=== PATIENT | male | born 1995 | race Caucasian/White ===

== ENCOUNTER → 2018-10-24 | Outpatient (CLI) | payer BC, OTHER, SELFPAY ==
[2018-10-24 16:39] VITALS: BMI 27.3
--- NOTE | 2018-10-24 17:02 | RAD_ITS ---
STUDY: X-RAY - LEFT ANKLE REASON FOR EXAM: Male, 23 years old. Injury to left leg one week ago with medial tibial pain. TECHNIQUE: 3 view(s) of the ankle. COMPARISON: Left knee images dated March 26, 2016. FINDINGS: Normal visualized distal tibia and fibula. Normal medial and lateral malleoli. Normal tibiotalar articulation and ankle mortise. Normal visualized talus and calcaneus. The visualized subtalar, talonavicular, calcaneocuboid and tarsal articulations are normal. The soft tissue structures are unremarkable. RAD/Ankle min 3 Views IMPRESSION: Normal x-ray examination of the ankle. Electronically Signed: Bharat Porter MD at 17:37 EDT , Service support ,
--- NOTE | 2018-10-24 17:02 | RAD_ITS ---
STUDY: X-RAY - LEFT TIBIA AND FIBULA REASON FOR EXAM: Male, 23 years old. Injury one week ago. Medial pain. TECHNIQUE: 2 view(s) of the tibia and fibula were obtained. COMPARISON: None. FINDINGS: Normal visualized tibia. Normal visualized fibula. The soft tissue structures are unremarkable. RAD/Tibia & Fibula 2 Views IMPRESSION: Normal x-ray examination of the tibia and fibula. Electronically Signed: Bharat Porter MD at 17:38 EDT , Service support ,
--- NOTE | 2018-10-24 17:02 | RAD_ITS ---
STUDY: X-RAY - LEFT KNEE REASON FOR EXAM: Male, 23 years old. Injury one week ago. Pain. TECHNIQUE: 4 view(s) of the knee. COMPARISON: March 26, 2016 FINDINGS: Normal visualized distal femur. Normal visualized proximal tibia and fibula. Normal proximal tibiofibular articulation. Normal medial femorotibial compartment. Normal lateral femorotibial compartment. Normal patellofemoral articulation. The soft tissue structures are unremarkable. RAD/Knee 4 or More Views IMPRESSION: No interval change and no acute finding. Electronically Signed: Bharat Porter MD at 17:38 EDT , Service support ,
== END | disposition home or self-care (01) ==
LOC: MTRAD 17:00
PROVIDERS: Family Provider Family Medicine; PCP Family Medicine; Referring Provider Physician Assistant; Visit Provider Physician Assistant
DX: S89.92XA Unspecified injury of left lower leg, initial encounter (principal); S99.912A Unspecified injury of left ankle, initial encounter
CPT/HCPCS: 73564; 73590; 73610

== ENCOUNTER 2018-10-30 09:45 | Emergency (ER) | payer BC, OTHER, SELFPAY ==
[2018-10-24 16:39] VITALS: BMI 27.3
[2018-10-30 09:46] VITALS: BP 140/100; PULSE 78; RESP 17; TEMP 36.8; O2SAT 99; BMI 27.0
--- NOTE | 2018-10-30 10:17 | ED.VISSUMM ---
- ER Visit Summary Date of Service: 10/30/18 Chief Complaint: Leg injury History of Present Illness: The patient is a 23 M who states that on October 17 he sustained a crush injury to the mid to the proximal anterior right leg and 300 pounds of metal came onto the leg. States he hyperextended his knee. He had knee pain has had prior meniscal repair. He states that he is to follow-up with orthopedics on Sunday. He tells me that he had a large amount of swelling and a abrasion to the anterior leg. Since then he has had tingling intermittently of the foot. He states it seems to get worse with his boots. Today he was on the way to [employer] and he felt the foot go numb. He states that it felt hot compared to the other side. It got better when he remove the boot. He denies any muscle weakness. She had outpatient x-rays that were negative Physical Examination: Afebrile vital signs stable The left leg appears neurovascular intact. +2 dorsalis pedis and posterior tibial pulses. Less than 2-second capillary refill of his toes. Sensation is felt with light touch. The lateral compartment of the leg shows swelling. The compartment still feels soft. He is able to strongly dorsiflex and plantar flex. There is some discomfort with dorsiflexion. There is no erythema. The abrasion seems to be healing appropriately. No obvious external signs of infection. The distal leg is not swollen. There is dark ecchymotic changes of the skin medially and laterally. Emergency Department Course and Treatment: I do not think the patient has compartment syndrome. The compartment is still relatively soft. He has strong pulses. Sensation is preserved. The distal crush injury with possible apraxia. I do not think he requires DVT ultrasound as the leg is not swollen. I do not think we need to repeat x-rays. At the current time of examination I do not believe he should be strykered for measurement of compartment pressures. Impression: 1. Left lateral leg compartment hematoma This note was generated with [employer] dictation software. It may contain incorrect words, spelling, and punctuation that were not noted in review of the chart prior to signing ED Disposition - Plan for ED Patient: Disposition: Home or Assisted Living Instructions: COMPARTMENT SYNDROME, At Risk for Referrals: Mikhail Valladares DO [STAFF PHYSICIAN] - Keep Anastasia appointment
[2018-10-30 10:21] VITALS: BP 108/62; PULSE 71; RESP 15; O2SAT 98
== END 2018-10-30 10:29 | disposition home or self-care (01) ==
LOC: ED 10:23
PROVIDERS: Emergency Provider Emergency Medicine; Family Provider Family Medicine; PCP Family Medicine
DX: S80.12XA Contusion of left lower leg, initial encounter (principal); S84.92XA Injury of unspecified nerve at lower leg level, left leg, initial encounter; S87.82XA Crushing injury of left lower leg, initial encounter; S80.812A Abrasion, left lower leg, initial encounter; W22.8XXA Striking against or struck by other objects, initial encounter; Y93.9 Activity, unspecified; Y92.9 Unspecified place or not applicable
CPT/HCPCS: 99282

== ENCOUNTER 2021-02-16 07:54 | Emergency (ER) | payer BC, SELFPAY ==
[2021-02-16 07:55] VITALS: BP 153/108; PULSE 90; RESP 16; TEMP 36.7; O2SAT 98; BMI 26.6
--- NOTE | 2021-02-16 09:16 | EDS_ITS ---
HPI History of Present Illness HPI Narrative: 25-year-old male has a history of a left knee meniscal injury with prior scopes. States the last 2 to 3 weeks has had intermittent right knee swelling. Denies any trauma or fall or injury. He does kneel a lot at work. He denies any fever or chills. He denies any constitutional symptoms. He denies any redness. Chief Complaint: Edema Detail of Chief Complaint: Right knee swelling atraumatic. Informant: patient and parent Onset/Context/Timing Onset: Weeks Context: Gradual Onset Timing: Intermittent Quality of Pain: Dull and Aching Current Severity: Mild Maximum Severity: Mild Associated Symptoms Associated Symptoms: Negative for Parasthesia, Weakness and Loss of Funtion Narrative Narrative: 25-year-old male no sniffing past medical history other than prior left knee scopes. Complaining of right knee swelling intermittently last several weeks. Denies any trauma. No prior surgery to this knee. Denies any fever. No family history or individual history of gout. Prior similar symptoms: No Recent Illness/Hospitalization: No PFSH PFSH Home Medications NK 10/30/18 [History Last Taken Unknown] Allergy/AdvReac Type Severity Reaction Status Date / Time No Known Allergies Allergy Verified 02/16/21 07:56 Surgical History History of arthroscopy of left knee History of hand surgery Social History Smoking Status: Never smoker ROS ROS ED ROS Narrative Denies. Review of Systems ROS Unobtainable: Denies due to encephalopathy Constitutional Constitutional ED: Denies fever(s) Eyes Eyes: Denies change in vision ENT ENT ED: Denies ear pain Cardiovascular Cardiovascular: Denies chest pain Respiratory/Chest Respiratory/Chest: Denies dyspnea Gastrointestinal Gastrointestinal: Denies abdominal pain Genitourinary Genitourinary ED: Denies dysuria Musculoskeletal Musculoskeletal: Reports arthralgias; Denies myalgias Integumentary Denies rash Neurologic Neurologic: Denies headache(s) Psychiatric Psychiatric: Denies depression Endocrine Endocrinology: Denies polyuria Hematologic/Lymphatic Hematologic/Lymphatic: Denies easy bruising Allergic/Immunologic Allergic/Immunologic ED: Denies urticaria EXAM Physical Exam Narrative Exam Narrative: Young healthy male no acute distress vital signs stable afebrile. Does not look septic or toxic. HEENT exam unremarkable. Neck nontender no lymphadenopathy. Lungs clear to auscultation bilaterally. Heart regular rate and rhythm rate about 90 no murmur. Abdomen soft nontender. Moving all 4 extremities. Neurovascular intact. Right knee mild to moderate effusion. Mild discomfort with flexion extension but able to do so. No signs of septic joint. No redness or significant warmth. No discoloration. ACL, PCL, LCL and MCL are all intact. He is able to flex and extend his leg. He has normal range of motion. Distally the calf and lower leg are unremarkable. No calf tenderness or edema. Right foot is neurovascularly intact. Otherwise exam unremarkable. Const Vital Signs: 02/16/21 07:55 Temperature 98.0 F Temperature Source Temporal Pulse Rate 90 Respiratory Rate 16 Blood Pressure 153/108 H Blood Pressure Mean 123 Pulse Ox 98 Oxygen Delivery Method Room Air HEENT Reports moist mucous membranes normocephalic and atraumatic Eyes PERRL Neck full ROM and supple Thyroid: Negative for tender Chest Wall inspection of chest normal and palpation of chest normal Resp normal respiratory effort, no retractions and clear to auscultation bilaterally Auscultation: Negative for rales, rhonchi or wheezes Cardio regular rate, regular rhythm, S1 normal heart sound, S2 normal heart sound and no murmurs GI non-tender, non-distended and no masses Auscultation: normoactive bowel sounds Palpation: soft; Negative for tender or guarding Back/Spine no CVA tenderness General Back: Negative for CVA tenderness Cervical Spine: Negative for cervical spine tenderness Thoracic Spine / Upper Back: Negative for thoracic spinal tenderness Extremity normal to inspection and full ROM Extremity Narrative: Except right knee small to moderate effusion. General Extremety ED: Negative for cyanosis or edema General Extremity: Negative for cyanosis or edema Neuro oriented x3 and moves all extremities Sensorium / Orientation: alert, oriented to person, oriented to place and oriented to time; Negative for orientation impaired, confused, lethargic or s tuporous Motor Exam: strength 5/5 throughout Psych mental status grossly normal Skin no wounds Lesions: no lesions Rashes: no rashes Trauma: Negative for abrasion, laceration or puncture MDM MDM MDM Narrative Medical decision making narrative: 25-year-old male with atraumatic right knee effusion. Work-up, labs and x-ray being obtained. He had I discussed arthrocentesis which were to proceed with. If the fluid does not look infected he will get an injection of Kenalog and lidocaine. Also discussed with patient 's mom is present in the room and she works here at the hospital. Right knee was cleaned with iodine and alcohol. I did a medial approach arthrocentesis. There was minimal fluid withdrawal what came out was just blood. Consistent with a traumatic effusion. There was no pus. There is no significant joint fluid otherwise and I was definitely in the joint. Patient tolerated it well. I did inject lidocaine and Kenalog and he got significant relief within minutes. Lab Data Attestation: I reviewed the patient's lab results. Lab results narrative: CBC showed a white count of 10.3. Hemoglobin 15. Electrolytes unremarkable gap of 4 normal BUN and creatinine. Glucose of 92. Uric acid normal 4.9. C-reactive protein of 5.8. Labs: Laboratory Results - last 24 hr 02/16/21 02/16/21 09:44 09:44 WBC 10.3 RBC 4.95 Hgb 15.2 Hct 44.5 MCV 89.9 MCH 30.7 MCHC 34.2 RDW Std Deviation 41.2 RDW Coeff of Jena 12.6 Plt Count 317 MPV 8.7 Immature Gran % (Auto) 0.300 Neut % (Auto) 77.4 H Lymph % (Auto) 11.6 L Jenkins % (Auto) 9.9 Eos % (Auto) 0.5 Baso % (Auto) 0.3 Absolute Neuts (auto) 8.0 H Absolute Lymphs (auto) 1.20 Nucleated RBC % 0 ESR 4 Sodium 138 Potassium 4.5 Chloride 104 Carbon Dioxide 30.0 Anion Gap 4 L BUN 10 Creatinine 0.85 Estim Creat Clear Calc 127.41 Est GFR (MDRD) Af Amer 139 Est GFR (MDRD) Non-Af 115 BUN/Creatinine Ratio 11.7 Glucose 92 Uric Acid 4.9 Calcium 9.5 C-React Prot Ext Range 5.80 H Radiography Diagnostic Testing: Clinical Impression(s) from Imaging Studies Knee X-Ray 02/16/21 09:25 IMPRESSION: Anterior soft tissue swelling. Electronically Signed: Jay Ngo MD at 9:50 EDT Tel , Service support , Right knee x-ray 4 views interpreted by myself and radiologist shows a small right knee effusion. No bony abnormality. No fracture or dislocation. Procedures Other Procedures Procedure(s): Right knee joint injection using Kenalog and lidocaine. Area cleaned with iodine and alcohol swabs medial approach. Withdrew about 2 cc of blood from the knee joint. Consistent with traumatic effusion. There is no signs of infection. 10 cc of lidocaine and Kenalog patient tolerated procedure well. Patient had pain relief within several minutes. Discharge Plan Triage Chief Complaint: Edema ED Provider: Panchito Yi Dx/Rx/DC Orders Clinical Impression: Effusion of knee Instructions: ED Knee Effusion Prescriptions: No Action NK RF: 0 Primary Care Provider: Homar Dee Referrals: Homar Dee MD [Primary Care Provider] - Nolan Issa MD [STAFF PHYSICIAN] - 1 Week if not improving Activity Restrictions/Additional Instructions: Most likely this appears to be a traumatic knee effusion that is why we saw blood. This is from kneeling at work. Try not to kneel for all possible. If you do make sure is well-padded either with kneepads or your knee on a blanket or pillow. This will cause this recurrent be worse. Ice and elevate your knee as much as possible to decrease pain and swelling. Motrin for pain and swelling. Tylenol for pain. This should progressively improve with the joint injection and to decrease the pain and swelling. Follow-up with orthopedics Dr. Mohsen Issa if not improving. Return immediately if fever or significantly worsening swelling and pain. Rest your knee and increase activity as tolerated. Disposition Disposition: Home, Self Care
--- NOTE | 2021-02-16 09:25 | RAD_ITS ---
STUDY: X-RAY - RIGHT KNEE REASON FOR EXAM: Anterior right knee pain, swelling and redness, no specific injury. TECHNIQUE: 4 view(s) of the knee. COMPARISON: None. FINDINGS: Normal visualized distal femur. Normal visualized proximal tibia and fibula. Normal proximal tibiofibular articulation. Normal medial femorotibial compartment. Normal lateral femorotibial compartment. Normal patellofemoral articulation. There is anterior soft tissue swelling. There is no demonstrated joint effusion. RAD/Knee 4 or More Views IMPRESSION: Anterior soft tissue swelling. Electronically Signed: Jay Ngo MD at 9:50 EDT Tel , Service support ,
[2021-02-16 09:53] LABS: Basophil# 0.03 X10^3/uL; Basophil% 0.3 % (0-1); Eosinophil# 0.05 X10^3/uL; Eosinophils% 0.5 % (0-5); Hematocrit 44.5 % (40-54); Hemoglobin 15.2 g/dL (13.0-16.5); Lymphocyte % 11.6 % (19-41); Mean Corp Hgb Conc 34.2 g/dL (32-36); Mean Corpuscular Hgb 30.7 pg (27.0-32.0); Mean Corpuscular Volume 89.9 fL (80-94); Mean Platelet Vol. 8.7 fl (6.2-12.0); Monocyte# 1.02 X10^3/uL; Monocyte% 9.9 % (0-10); NRBC Flagged by Analyzer 0 % (0-5); Neutrophil % 77.4 % (47-70); Platelet Count 317 K/mm3 (150-450); RBC Distribution Width CV 12.6 % (11.6-14.6); RBC Distribution Width SD 41.2 fl (35.1-43.9); Red Blood Count 4.95 M/mm3 (4.6-6.2); White Blood Count 10.3 K/mm3 (4.4-11.0)
[2021-02-16 10:04] LABS: Erythrocyte Sedimentation Rate 4 mm/hr (0-20)
[2021-02-16 10:06] LABS: Anion Gap 4 (5-15); BUN 10 mg/dL (7-18); BUN/Creat Ratio 11.7 RATIO (10-20); Calcium,Total 9.5 mg/dL (8.5-10.1); Chloride 104 mmol/L (98-107); Creatinine, Serum 0.85 mg/dL (0.70-1.30); EST Glomerular Filtration Rate 115 mL/min (>60); Est Glom Filt Rate - Afr Amer 139 mL/min (>60); Estimated Creatinine Clearance 127.41 ml/min; Glucose 92 mg/dL (74-106); Potassium 4.5 mmol/L (3.5-5.1); Sodium Level 138 mmol/L (136-145); Uric Acid 4.9 mg/dL (3.5-7.2)
[2021-02-16] MEDS: Triamcinolone Acetonide 40 MG/ML Vial IU (10:11)
[2021-02-16] MEDS: Lidocaine 1% (20 ml mdv) 20 ML Vial INFILT (10:11)
[2021-02-16 11:21] VITALS: PULSE 88; RESP 17; O2SAT 97
== END 2021-02-16 11:23 | disposition home or self-care (01) ==
PROVIDERS: Emergency Provider Emergency Medicine; PCP Family Medicine
DX: M25.461 Effusion, right knee (principal)
CPT/HCPCS: 20610; 73564; 80048; 84550; 85025; 85652; 86140; 99283; A4216

== ENCOUNTER → 2023-04-12 | Outpatient (CLI) | payer BC, SELFPAY ==
--- OUTSIDE RECORDS SUMMARY | 2023-04-12 11:56 | XMS RPT_ITS | CCD ---
Author Name Unknown Address [address] [place] [address] Organization [facility] Care Team Providers Care Strength And Conditioning Coach Name Role Phone Fidelia Pena LPN Unavailable Unavailab antonio KIRKLAND, Pilo Russell Unavailable Medications Completed/Discontinued Medications Medication Drug Class(es) Dates Sig (Normalized) Sig (Original) naproxen sodium 220 mg oral capsule (4 sources) Nonsteroidal Anti-inflammatory Drug Start: 2016 End: 12-02-2016 ALEVE 220 MG CAPS NAPROXEN SODIUM [id number] Carter Osman Problems Problem Classification Problem Date Documented Da te Episodic/Chronic Allergic reactions (2 sources) Contact dermatitis due to poison juan; Translations: [Allergic contact dermatitis due to plants, except food] Onset: 12-02-2016 12-02-2016 Episodic Joint disorders and dislocations; trauma-related (4 sources) Other tear of medial meniscus, current injury, left knee, initial encounter; Translations: [Other tear of lateral meniscus, current injury, left knee, initial encounter] Onset: 2016 2016 Episodic Other non-traumatic joint disorders (2 sources) Pain in left knee; Translations: [Pain in left knee] Onset: 2016 03-30-2016 Episodic Results Test Name Value Interpretation Reference Range Facil ity Vital Signs Date Time Vital Sign Value Performing Clinician Faci litrio 12-02-2016 09:48-0400 BMI (Body Mass Index) 28.34 kg/m2 Fidelia Pena LPN [facility] Work Phone: 12-02-2016 09:48-0400 Body Temperature 98.1 [degF] Fidelia Pena LPN [facility] Work Phone: 12-02-2016 09:48-0400 BP Diastolic 70 mm[Hg] Fidelia Pena LPN [facility] Work Phone: 12-02-2016 09:48-0400 BP Systolic 118 mm[Hg] Fidelia Pena LPN [facility] Work Phone: 12-02-2016 09:48-0400 Height 172.72 cm Fidelia Pena LPN [facility] Work Phone: 12-02-2016 09:48-0400 Pulse (Heart Rate) 86 /min Fidelia Pena LPN [facility] Work Phone: 12-02-2016 09:48-0400 Respiratory Rate 14 /min Fidelia Pena LPN [facility] Work Phone: 12-02-2016 09:48-0400 Weight 84.55 kg Fidelia Pena LPN [facility] Work Phone: Procedures Date Procedure Procedure Detail Performing Clinician Start: 12-02-2016 End: 12-02-2016 Kenalog per 10 mg Pilo KIRKLAND Work Phone: Start: 2016 End: 03-30-2016 Arthrocentesis aspir&/inj major jt/bursa w/o us Remy Jara Work Phone: Plan of Treatment Date Care Activity Detail Author Start: 12-02-2016 End: 12-02-[address] [facility] Work Phone: Start: 2016 End: 2016 Mri any jt lower extrem w/o contrast matrl MRI Joint Lower Extremity [facility] Work Phone: Patient Education [id number] Work Phone: Summary Purpose Family History No Family History Records Found Advance Directives No Advanced Directives Records Found Additional Source Comments (unrecognized sect ion and content) No Status Records Found INFORMATION SOURCE (unrecogn ized section and content) FOR RECORDS PERTAINING TO PATIENTS WHO ARE OR HAVE BEEN ENROLLED IN A CHEMICAL DEPENDENCY/SUBSTANCEABUSE PROGRAM, SOME INFORMATION MAY BE OMITTED. This clinical summary was aggregated from multiple sources. Caution should be exercised in using it in the provision of clinical care. This summary normalizes information from multiple sources, and as a consequence, information in this document may materially change the coding, format and clinical context of patient data. In addition, data may be omitted in some cases. CLINICAL DECISIONS SHOULD BE BASED ON THE PRIMARY CLINICAL RECORDS. [facility] [employer] [facility]. provides no warranty or guarantee of the accuracy or completeness of information in this document.
[2023-04-12 15:32] LABS: Absolute Lymphocyte Count 1.59 X10^3/uL (0.83-4.51); Absolute Neutrophil Count 4.4 X10^3/uL (2.0-7.7); Basophil# 0.02 X10^3/uL; Basophil% 0.3 % (0-1); Eosinophil# 0.04 X10^3/uL; Eosinophils% 0.6 % (0-5); Hematocrit 47.4 % (40-54); Hemoglobin 15.7 g/dL (13.0-16.5); Lymphocyte # 1.59 X10^3/ul (0.83-4.51); Mean Corp Hgb Conc 33.1 g/dL (32-36); Mean Corpuscular Hgb 30.3 pg (27.0-32.0); Mean Corpuscular Volume 91.3 fL (80-94); Mean Platelet Vol. 8.8 fl (6.2-12.0); Monocyte# 0.58 X10^3/uL; Monocyte% 8.8 % (0-10); NRBC Flagged by Analyzer 0 % (0-5); Neutrophil # 4.37 X10^3/uL (2.7-7.7); Platelet Count 352 K/mm3 (150-450); RBC Distribution Width SD 43.7 fl (35.1-43.9); Red Blood Count 5.19 M/mm3 (4.6-6.2); White Blood Count 6.6 K/mm3 (4.4-11.0)
[2023-04-12 15:56] LABS: Vitamin D,25 Hydroxy 29.8 ng/mL
[2023-04-12 16:06] LABS: AST(SGOT) 27 U/L (15-37); Alanine Aminotransfer ALT/SGPT 28 U/L (16-61); Alkaline Phosphatase 101 U/L (45-117); Anion Gap 5 (5-15); BUN 8 mg/dL (7-18); Calcium,Total 9.1 mg/dL (8.5-10.1); Chloride 104 mmol/L (98-107); Cholesterol 182 mg/dL (200); Creatinine, Serum 0.89 mg/dL (0.70-1.30); EST Glomerular Filtration Rate 108 mL/min (>60); Est Glom Filt Rate - Afr Amer 130 mL/min (>60); Globulin 4.1 g/dL (2.2-4.2); Glucose 93 mg/dL (74-106); High Density Lipoprotein 78 mg/dL; Potassium 4.7 mmol/L (3.5-5.1); Protein, Total 8.1 g/dL (6.4-8.2); Sodium Level 137 mmol/L (136-145); Triglycerides 75 mg/dL; Very Low Density Lipoprotein 15 mg/dL (5-40)
== END | disposition home or self-care (01) ==
LOC: MFPLAB 11:20
PROVIDERS: PCP Family Medicine; Visit Provider Family Medicine
DX: Z00.00 Encounter for general adult medical examination without abnormal findings (principal); F10.20 Alcohol dependence, uncomplicated; Z13.21 Encounter for screening for nutritional disorder
CPT/HCPCS: 36415; 80053; 80061; 82306; 85025